=== PATIENT | male | born 1950 | race African-American/Black ===

== ENCOUNTER 2016-10-03 03:17 | Emergency (ER) | payer MEDICARE, OTHER ==
[~2016-10-03] VITALS: Ht 180.3 cm; Wt 77.1 kg
[2016-10-03 04:19] LABS: CALCIUM 9.4 mg/dL (8.5-10.1); CREATININE 1.4 mg/dL (0.7-1.3); GFR 61.5; POTASSIUM 3.8 mmol/L (3.5-5.1)
--- NOTE | 2016-10-03 04:21 | PHYS DOC ---
Past Medical History Past Medical History: Diabetes-Type II, Hypertension Additional Past Medical Histor: HepC, BPH Past Surgical History: Other Additional Past Surgical Histo: carpal tunnel Alcohol Use: Occasionally Drug Use: None Adult General Chief Complaint Chief Complaint: URINE CATHETER PROBLEM HPI HPI Patient is a 66 year old male who presents with concern of Rosales catheter malfunction. He had catheter placed a few days ago at [facility]. He has been home with his catheter for 1 day. He feels he has not urinated enough into his leg bag and is having lower abdominal pains and urged to urinate. He was given prescriptions, but has not filled these yet. He denies fever or chills, nausea or vomiting, hematuria, diarrhea, constipation. Review of Systems Review of Systems Constitutional: Denies fever or chills [] Eyes: Denies change in visual acuity, redness, or eye pain [] HENT: Denies nasal congestion or sore throat [] Respiratory: Denies cough or shortness of breath [] Cardiovascular: No additional information not addressed in HPI [] GI: Denies nausea, vomiting, bloody stools or diarrhea [] : Denies dysuria or hematuria [] Musculoskeletal: Denies back pain or joint pain [] Integument: Denies rash or skin lesions [] Neurologic: Denies headache, focal weakness or sensory changes [] Endocrine: Denies polyuria or polydipsia [] Current Medications Current Medications Current Medications Medications (Trade) Dose Ordered Sig/[facility] Start Time Stop Time Status Last Admin Dose Admin Phenazopyridine HCl (Pyridium) 200 mg 1X ONCE 10/03/16 04:30 10/03/16 04:31 UNV 10/03/16 04:30 200 MG Allergies Allergies Allergies Coded Allergies Type Severity Reaction Last Updated Verified No Known Drug Allergies 10/03/16 No Physical Exam Physical Exam Constitutional: Well developed, well nourished, no acute distress, non-toxic appearance. [] HENT: Normocephalic, atraumatic, bilateral external ears normal, oropharynx moist, nose normal. [] Eyes: PERRLA, EOMI. [] Neck: Normal range of motion, supple. [] Cardiovascular:Heart rate regular rhythm [] Lungs & Thorax: Bilateral breath sounds clear to auscultation [] Abdomen: Bowel sounds normal, soft, mild suprapubic tenderness, no masses. [] Skin: Warm, dry, no erythema, no rash. [] Back: No tenderness, no CVA tenderness. [] Extremities: ROM intact, no edema. [] Neurologic: Alert and oriented X 3, normal motor function, normal sensory function, no focal deficits noted. [] Psychologic: Affect normal, judgement normal, mood normal. [] Current Patient Data Vital Signs Vital Signs Date Time Temp Pulse Resp B/P Pulse Ox O2 Delivery O2 Flow Rate FiO2 10/03/16 03:20 97.8 95 20 145/86 98 Room Air 97.8 Lab Values Laboratory Tests Test 10/03/16 03:50 Sodium Level 141mmol/L (136-145) Potassium Level 3.8mmol/L (3.5-5.1) Chloride Level 103mmol/L (98-107) Carbon Dioxide Level 24mmol/L (21-32) Anion Gap 14 (6-14) Blood Urea Nitrogen 20mg/dL (8-26) Creatinine 1.4mg/dL (0.7-1.3) H Estimated GFR (Cockcroft-Gault) 61.5 Glucose Level 107mg/dL (70-99) H Calcium Level 9.4mg/dL (8.5-10.1) Total Bilirubin 0.3mg/dL (0.2-1.0) Direct Bilirubin 0.1mg/dL (0.0-0.2) Aspartate Amino Transferase (AST) 56U/L (15-37) H Alanine Aminotransferase (ALT) 35U/L (16-63) Alkaline Phosphatase 99U/L (46-116) Total Protein 9.2g/dL (6.4-8.2) H Albumin 3.8g/dL (3.4-5.0) Lipase 153U/L (73-393) Laboratory Tests 10/03/16 03:50 Course & Med Decision Making Course & Med Decision Making Pertinent Labs and Imaging studies reviewed. (See chart for details) Workup is unremarkable. He has a small volume on his bladder scan, so catheter is not changed. I suspect his symptoms are related to bladder spasm. I will start him on a short course of Pyridium. I encouraged follow-up with urology as appointed. Return precautions given. He understands and agrees with plan. Meera Disclaimer Dragon Disclaimer This electronic medical record was generated, in whole or in part, using a voice recognition dictation system. Departure Departure Impression: Primary Impression: Abdominal pain Additional Impression: Urinary retention Disposition: HOME, SELF-CARE Condition: STABLE Referrals: NO PCP (PCP) Patient Instructions: Rosales Catheter Care, Adult Additional Instructions: Take Pyridium as needed for bladder spasm pain. Follow-up with urology clinic. Return for any concerns. Scripts Phenazopyridine Hcl (Pyridium)100 Mg [id number] Mg PO TID PRN STOMACH CRAMPING # 6 TAB Prov:Hayden HAYES MD 10/03/16 Problem Qualifiers Primary Impression: Abdominal pain Abdominal location: lower abdomen, unspecified Qualified Code: R10.30 - Lower abdominal pain, unspecified Hayden HAYES MD Oct 03, 2016 04:21
[2016-10-03 04:26] LABS: ALBUMIN 3.8 g/dL (3.4-5.0); DIRECT BILIRUBIN 0.1 mg/dL (0.0-0.2); TOTAL BILIRUBIN 0.3 mg/dL (0.2-1.0); TOTAL PROTEIN 9.2 g/dL (6.4-8.2)
[2016-10-03 04:30] VITALS: BP 115/77
[2016-10-03] MEDS ORDERED: PHENAZOPYRIDINE 200 MG TABLET. PO ONE (04:30)
[2016-10-03] MEDS ORDERED: PHEN100T82 PO (04:38)
== END 2016-10-03 04:45 | disposition home or self-care (01) ==
LOC: ER 03:17
DX: T83.011A Breakdown (mechanical) of indwelling urethral catheter, initial encounter (principal); I10 Essential (primary) hypertension; E11.9 Type 2 diabetes mellitus without complications; N40.0 Benign prostatic hyperplasia without lower urinary tract symptoms; Z86.19 Personal history of other infectious and parasitic diseases; Y82.8 Other medical devices associated with adverse incidents; Y92.89 Other specified places as the place of occurrence of the external cause
CPT/HCPCS: 36415; 80048; 80076; 83690; 99284